=== PATIENT | female | born 2000 | race African-American/Black ===

== ENCOUNTER 2025-09-09 09:03 | Inpatient (IN) | payer SELFPAY ==
[~2025-09-09] VITALS: Ht 167.6 cm; Wt 61.2 kg
[2025-09-09 09:05] VITALS: O2SAT 100
[2025-09-09 10:52] LABS: BASOPHILS % 0.4 % (0.0-2.0); EOSINOPHILS % 0.5 % (0.0-5.0); HEMATOCRIT. 36.6 % (36.0-48.0); HEMOGLOBIN. 12.0 g/dL (12.0-16.0); LYMPHOCYTES % 16.5 % (20.0-50.0); MEAN PLATELET VOLUME 8.6 fl (7.4-10.4); MONOCYTES % 9.6 % (2.0-8.0); NEUTROPHILS % 73.0 % (40.0-76.0); PLATELET 196 x1000/uL (130-400); RED BLOOD CELL COUNT 4.19 mill/uL (4.2-5.4); RED CELL DISTRIBUTION WIDTH 12.8 % (11.6-14.6)
[2025-09-09 11:19] LABS: HCG SCREEN NEGATIVE
[2025-09-09 12:05] LABS: TROPONIN I HIGH SENSITIVITY < 4 ng/L (3.0-34)
[2025-09-09 12:15] LABS: CREATININE 0.8 mg/dL (0.6-1.0); UREA NITROGEN BLOOD 9 mg/dL (9-23)
[2025-09-09 13:55] LABS: *AMPHETAMINES SCREEN URINE NEGATIVE (NEGATIVE)
[2025-09-09 13:56] LABS: *BARBITURATES SCREEN URINE NEGATIVE (NEGATIVE); *BENZODIAZEPINES SCREEN URINE PRESUMPTIVE POSITIVE (NEGATIVE); *COCAINE SCREEN URINE NEGATIVE (NEGATIVE); CANNABINOID URINE SCREEN PRESUMPTIVE POSITIVE (NEGATIVE); ECSTASY MDMA SCREEN URINE NEGATIVE (NEGATIVE); METHADONE URINE SCREEN NEGATIVE (NEGATIVE); OPIATES URINE SCREEN NEGATIVE (NEGATIVE); PHENCYCLIDINE URINE SCREEN NEGATIVE (NEGATIVE)
[2025-09-09 13:58] LABS: CLARITY URINE CLOUDY (CLEAR); COLOR URINE DARK YELLOW (YELLOW); GLUCOSE URINE NEGATIVE (NEGATIVE); KETONES URINE 3+ (NEGATIVE); LEUKOCYTE ESTERASE URINE NEGATIVE (NEGATIVE); NITRITE URINE NEGATIVE (NEGATIVE); OCCULT BLOOD URINE NEGATIVE (NEGATIVE); PH URINE 5.5 (4.5-8.0); PROTEIN URINE 1+ (NEGATIVE); SPECIFIC GRAVITY URINE 1.034 (1.005-1.030); UROBILINOGEN URINE 1.0 E.U./dL (0.2-1.0)
[2025-09-09 14:17] LABS: BACTERIA URINE 2+; RBC URINE 0-2 /hpf (0-2); SQUAMOUS EPITHELIAL CELL URINE 3+ /lpf (RARE/1+); YEAST URINE NONE SEEN
[2025-09-09] MEDS ORDERED: ACETAMINOPHEN 325MG TABLET PO PRN (15:00)
[2025-09-09] MEDS ORDERED: ONDANSETRON HCL 4MG/2ML INJ IV PRN (15:00)
[2025-09-09] MEDS ORDERED: KCL 20MEQ/100ML PREMIX 100 ML IV SCH (15:30)
[2025-09-09 20:00] VITALS: BP_SYST 119; BP_SYST 146; BP_DIAS 58; BP_DIAS 73; PULSE 60; PULSE 86; RESP 17; TEMP 36.6; TEMP 36.7; O2SAT 100; O2SAT 96
[2025-09-09 22:31] VITALS: BP 119/58; PULSE 60; RESP 19; TEMP 36.7516
[2025-09-09] MEDS ORDERED: LORAZEPAM 2MG/ML UD SYRINGE ONE (23:48)
[2025-09-09] MEDS: LORAZEPAM 2MG/ML UD SYRINGE IV PRN (23:55)
[2025-09-10] VITALS: BP 96/50; PULSE 70; RESP 17; TEMP 36.6; O2SAT 98
[2025-09-10 08:00] VITALS: PULSE 80; RESP 16; TEMP 36.8; O2SAT 98
[2025-09-10 08:24] LABS: BASOPHILS % 0.3 % (0.0-2.0); EOSINOPHILS % 1.4 % (0.0-5.0); HEMATOCRIT. 35.9 % (36.0-48.0); HEMOGLOBIN. 12.1 g/dL (12.0-16.0); LYMPHOCYTES % 20.7 % (20.0-50.0); MEAN PLATELET VOLUME 7.5 fl (7.4-10.4); MONOCYTES % 8.5 % (2.0-8.0); NEUTROPHILS % 69.1 % (40.0-76.0); PLATELET 233 x1000/uL (130-400); RED BLOOD CELL COUNT 4.18 mill/uL (4.2-5.4); RED CELL DISTRIBUTION WIDTH 12.8 % (11.6-14.6)
[2025-09-10 08:40] LABS: CREATININE 0.8 mg/dL (0.6-1.0); UREA NITROGEN BLOOD 11 mg/dL (9-23)
[2025-09-10] MEDS: PANTOPRAZOLE SODIUM 40 MG/VIAL IV SCH (09:02)
[2025-09-10] MEDS ORDERED: HYDROXYZINE 25MG TABLET PO PRN (11:00)
[2025-09-10] MEDS: OLANZAPINE 5MG TABLET ODT PO SCH (11:00)
[2025-09-10] MEDS: POTASSIUM CHLORIDE 20MEQ TABLET SR PO NR (12:00)
[2025-09-10 12:30] VITALS: BP 120/74; PULSE 90; RESP 16; TEMP 37.2; O2SAT 99
[2025-09-10 16:00] VITALS: BP 99/48; PULSE 58; RESP 16; TEMP 37.1; O2SAT 96
== END 2025-09-11 16:00 | disposition left against medical advice (07) | DRG 52 ==
LOC: ER 09:03 → EDBEDREQTM 11:36 → EDBEDREQ 11:36 → ENRESERV 15:37 → 5WST 16:24 → EDBD 16:24
PROVIDERS: ADMIT Internal Medicine; ATTEND Internal Medicine
DX: G93.40 Encephalopathy, unspecified (principal); J96.01 Acute respiratory failure with hypoxia; E87.6 Hypokalemia; Z53.29 Procedure and treatment not carried out because of patient's decision for other reasons; S80.212A Abrasion, left knee, initial encounter; S80.811A Abrasion, right lower leg, initial encounter; Z78.1 Physical restraint status; X58.XXXA Exposure to other specified factors, initial encounter; Y93.89 Activity, other specified; Y92.89 Other specified places as the place of occurrence of the external cause; Y99.8 Other external cause status
CPT/HCPCS: 36415; 73560; 80048; 80305; 80307; 80320; 80329; 81003; 82140; 82962; 84484; 84703; 85025; 97161; 99285; A4606; J2060; J2470; G0480